=== PATIENT | male | born 1985 | race Caucasian/White ===

== ENCOUNTER 2016-12-23 01:36 | Emergency (ER) | payer MEDICAID, OTHER ==
[~2016-12-23] VITALS: Ht 167.6 cm; Wt 35.1 kg
[2016-12-23 01:41] VITALS: Ht 167.6 cm; Wt 35.1 kg
[2016-12-23] MEDS ORDERED: MECLIZINE 12.5 MG TAB PO ONE (03:30)
[2016-12-23] MEDS ORDERED: IBUP-1542 PO (03:35)
--- NOTE | 2016-12-23 05:33 | ERD ---
ER Documentation Chief Complaint Date/Time DATE: 12/23/16 TIME: 05:30 Chief Complaint dizziness/diaphoretic/vomiting x 1 hour HPI 31-year-old previously healthy male presenting with dizziness, with associated nausea and vomiting. He states that at 9 PM last night his [id number] gave him tramadol 100 mg 3 tablets for a tooth ache. After this he started feeling vertiginous with multiple episodes of nonbloody and nonbilious vomiting. He denies any associated headache, vision disturbance, fever, chills. He states that he has been having a toothache in the right upper back teeth. He denies feeling this way prior to taking the medication. ROS All systems reviewed and are negative except as per history of present illness. Medications Home Meds Active Scripts Ibuprofen* (Ibuprofen*) 600 Mg Tablet, 600 MG PO Q6H Y for PAIN, #30 TAB Prov:VIDHI ERNANDEZ MD 12/23/16 Allergies Allergies: Coded Allergies: No Known Drug Allergies (Verified Allergy, Unknown, 12/23/16) PMhx/Soc Medical and Surgical Hx: pt denies Medical Hx, pt denies Surgical Hx Hx Alcohol Use: No Hx Substance Use: No Hx Tobacco Use: No Smoking Status: Never smoker FmHx Family History: No diabetes Physical Exam Vitals Vital Signs Date Time Temp Pulse Resp B/P Pulse Ox O2 Delivery O2 Flow Rate FiO2 12/23/16 01:41 95.0 61 20 141/82 98 Physical Exam Const: Well-appearing, no distress Head: Atraumatic Eyes: Normal Conjunctiva, Lauren, EOMI, horizontal nystagmus ENT: Normal External Ears, Nose and Mouth. TMs clear bilaterally. Tenderness to palpation of right upper last molar, no surrounding gum swelling or purulent drainage. No facial swelling Neck: Full range of motion. No meningismus. Resp: Clear to auscultation bilaterally Cardio: Regular rate and rhythm, no murmurs Abd: Soft, non tender, non distended. Normal bowel sounds Skin: No petechiae or rashes Back: No midline or flank tenderness Ext: No cyanosis, or edema Neur: Awake and alert and oriented 3, cranial nerves intact, strength and sensations intact in all 4 extremities, cerebellar exam normal, careful gait but steady Psych: Normal Mood and Affect Results 24 hrs Current Medications Medications (Trade) Dose Ordered Sig/Bishnu Route PRN Reason Start Time Stop Time Status Last Admin Dose Admin Meclizine HCl (Antivert) 25 mg ONCE ONCE PO 12/23/16 03:30 12/23/16 03:31 DC 12/23/16 03:33 Procedures/MDM EMERGENT LABS AND DIAGNOSTIC STUDIES: 12-lead EKG was interpreted by Faiza Ernandez MD: Normal Sinus Rhythm with ventricular rate of 63 beats per minute Normal axis Normal intervals No acute ST or T wave changes suggestive of acute ischemia or STEMI. Initial Nursing notes reviewed. Previous Medical Records requested via the Electronic Health Record. EMERGENCY DEPARTMENT COURSE / MEDICAL DECISION MAKING: The patient is presenting after he took a very high dose of tramadol with subsequent dizziness, nausea, and vomiting. He is hemodynamically stable. I have a low suspicion of acute stroke, intracranial infection, dissection, intracranial hemorrhage, acute coronary syndrome. I suspect his symptoms are secondary to the very high dose of tramadol. The patient was given meclizine and monitored for about 3 hours. His EKG did not show any significant arrhythmias or QT prolongation. After observation, the patient felt much better and was able to walk with a steady gait. I counseled him on the importance of not taking other peoples medication and only take medication as prescribed to him. The patient understands. I will give him ibuprofen for his dental pain. I advised to follow-up with a dentist as soon as possible to get his tooth checked out. He was discharged in a stable condition. Patient's blood pressure was elevated (>120/80) but appears stable without evidence of hypertensive emergency or urgency. The patient was counseled about the risks of hypertension and urged to pursue outpatient monitoring and therapy within a week with their primary care physician. Departure Diagnosis: Primary Impression: Overdose of medication Encounter type: initial encounter Injury intent: accidental or unintentional Qualified Code: T50.901A - Overdose of medication, accidental or unintentional, initial encounter Additional Impressions: Dizziness Vomiting alone Vomiting type: unspecified Vomiting Intractability: non-intractable Qualified Code: R11.11 - Non-intractable vomiting without nausea, unspecified vomiting type Pain, dental Medication reaction Encounter type: initial encounter Qualified Code: T88.7XXA - Medication reaction, initial encounter Condition: Stable Patient Instructions: Dental Pain, Overdose, Opiate Referrals: [facility] Usted se carrillo hecho un examen mdico de control que le indica que no est en ronan condicin que requiera tratamiento urgente en el Departamento de Emergencia. Un estudio ms profundo y el tratamiento de mcguire condicin pueden esperar sin ningn riesgo hasta que usted sea atendida/o en el consultorio de mcguire mdico o ronan cl abilio. Es responsabilidad suya arreglar ronan pranay para el seguimiento del shadia. MANEJO DE CONDICIONES NO URGENTES EN EL FUTURO 1) Si usted tiene un mdico de atencin primaria: Usted debera llamar a mcguire mdico de atencin primaria antes de venir al departamento de emergencia. Despus de las horas de consultorio, mcguire doctor o mcguire asociado/a est disponible por telfono. El mdico o enfermero de kelly en el servicio telefnico puede asesorarle por yoav medio para atender el problema, o shadia contrario se puede programar ronan pranay. 2) Si usted no tiene un mdico de atencin primaria: Llame al mdico o clnica de referencia que aparece abajo ny las horas de consultorio para hacer ronan pranay para que le vean. CLINICAS: [facility] [phone] [facility] [phone] [facility] [phone] [address] [facility]. [place] [phone] [place] [phone] [place] [phone] VIDHI GARRETT MD Dec 23, 2016 05:32
[2016-12-23 05:45] VITALS: BP 122/78; PULSE 82; RESP 20; TEMP 98.5
== END 2016-12-23 05:49 | disposition home or self-care (01) ==
LOC: E/R 01:36
DX: T40.4X1A Poisoning by other synthetic narcotics, accidental (unintentional), initial encounter (principal); R11.11 Vomiting without nausea; K08.89 Other specified disorders of teeth and supporting structures; R40.2142 Coma scale, eyes open, spontaneous, at arrival to emergency department
CPT/HCPCS: Z7502; Z7610